=== PATIENT | female | born 1990 | race Two or more races ===

== ENCOUNTER 2020-12-02 08:34 | Emergency (ER) | payer OTHER ==
[~2020-12-02] VITALS: Ht 154.9 cm; Wt 63.5 kg
[2020-12-02] MEDS ORDERED: IV NORMAL SALINE 500 ML BAG IV ONE (08:45)
--- NOTE | 2020-12-02 08:56 | NUR ---
Dr Rosenthal at the bedside for MSE.
[2020-12-02 09:04] LABS: MEAN CORPUSCULAR HEMOGLOBIN 28.4 uug (24.7-32.8); MEAN CORPUSCULAR VOLUME 85.5 fL (75.5-95.3); PLATELET COUNT (AUTO) 343 K/uL (179-408)
[2020-12-02 09:13] LABS: *BILIRUBIN,URIN NEGATIVE (NEGATIVE); *CLARITY,URINE CLEAR (CLEAR); *COLOR,URINE YELLOW (YELLOW); *KETONES,URINE NEGATIVE (NEGATIVE); *UROBILINOGEN,URINE 0.2 E.U./dl (NORMAL); CREATININE 0.7 mg/dL (0.6-1.3); LEUKOCYTE ESTERASE ,URINE NEGATIVE (NEGATIVE); NITRITE, URINE NEGATIVE (NEGATIVE); POTASSIUM 3.4 mmol/L (3.5-5.1); UGLUCOSE NEGATIVE (NEGATIVE)
[2020-12-02 09:17] LABS: *BLOOD, URINE TRACE (NEGATIVE)
[2020-12-02 09:18] LABS: BILIRUBIN,TOTAL 1.1 mg/dL (0.2-1.0)
--- NOTE | 2020-12-02 09:52 | NUR ---
assissted md with vaginal exam, pt tolerated well.
--- NOTE | 2020-12-02 10:19 | NUR ---
IV removed. Catheter intact and site benign. Pressure and 4x4 gauze applied to site. No bleeding noted.
[2020-12-02 10:20] VITALS: BP 117/63
--- NOTE | 2020-12-02 10:22 | NUR ---
Patient discharged to home in stable condition. Written and verbal after care instructions given. Patient verbalizes understanding of instructions. Stressed follow up or return to ER for worsening s/s.
[2020-12-02 13:52] LABS: BACTERIA,URINE MODERATE /HPF (NONE SEEN); RBC,URINE 0-3 /HPF (0-3); SQUAMOUS EPITHELIAL CELL,UR FEW /HPF (NONE SEEN); WBC,URINE 0-3 /HPF (0-3)
[2020-12-02 13:53] LABS: URINE AMORPHOUS URATE MODERATE /HPF
== END 2020-12-02 10:22 | disposition home or self-care (01) ==
LOC: ER 08:34
DX: R30.0 Dysuria (principal); E87.6 Hypokalemia; R31.9 Hematuria, unspecified
CPT/HCPCS: 36415; 85025; 87086; 87210; 87491; 87591; A4663; J7030

== ENCOUNTER 2020-12-10 17:54 | Emergency (ER) | payer OTHER ==
[~2020-12-10] VITALS: Ht 154.9 cm; Wt 63.5 kg
[2020-12-10 18:13] LABS: *BILIRUBIN,URIN NEGATIVE (NEGATIVE); *BLOOD, URINE NEGATIVE (NEGATIVE); *CLARITY,URINE CLEAR (CLEAR); *COLOR,URINE YELLOW (YELLOW); *KETONES,URINE NEGATIVE (NEGATIVE); *URINE HCG, QUAL NEGATIVE (NEGATIVE); *UROBILINOGEN,URINE 0.2 E.U./dl (NORMAL); LEUKOCYTE ESTERASE ,URINE NEGATIVE (NEGATIVE); NITRITE, URINE NEGATIVE (NEGATIVE); UGLUCOSE NEGATIVE (NEGATIVE)
[2020-12-10] MEDS ORDERED: IV NORMAL SALINE 1000 ML BAG IV ONE (19:00)
[2020-12-10] MEDS ORDERED: IOHEXOL 300MG/ML 100 ML INFUS..BTL ONE (19:13)
[2020-12-10] MEDS ORDERED: SWABABLE VALVE TRANSFER SET EA MC ONE (19:13)
[2020-12-10] MEDS ORDERED: IV NORMAL SALINE 250 ML IV ONE (19:13)
[2020-12-10 19:19] LABS: HEMATOCRIT 38.2 % (31.2-41.9); MEAN CORPUSCULAR HEMOGLOBIN 28.3 uug (24.7-32.8); PLATELET COUNT (AUTO) 320 K/uL (179-408)
[2020-12-10 19:21] LABS: CREATININE 0.6 mg/dL (0.6-1.3); POTASSIUM 3.5 mmol/L (3.5-5.1)
[2020-12-10 19:26] LABS: BILIRUBIN,DIRECT 0.1 mg/dL (0.0-0.2); BILIRUBIN,TOTAL 0.7 mg/dL (0.2-1.0); TOTAL PROTEIN, SERUM 8.3 g/dL (6.4-8.2)
--- NOTE | 2020-12-10 19:45 | NUR ---
PATIENT RESTING IN BED WITH NO DISTRESS NOTED.
[2020-12-10] MEDS ORDERED: METR500T PO (20:18)
[2020-12-10] MEDS ORDERED: CIPR-262 PO (20:18)
--- NOTE | 2020-12-10 20:30 | NUR ---
IV removed. Catheter intact and site benign. Pressure and 4x4 gauze applied to site. No bleeding noted.
[2020-12-10 20:36] VITALS: BP 128/67
[2020-12-13 04:06] LABS: *GC NAA Negative (Negative); *TRIC.VAG. NAA Negative (Negative)
== END 2020-12-10 20:37 | disposition home or self-care (01) ==
LOC: ER 17:54
DX: K52.9 Noninfective gastroenteritis and colitis, unspecified (principal); R16.0 Hepatomegaly, not elsewhere classified; R30.0 Dysuria; R93.89 Abnormal findings on diagnostic imaging of other specified body structures; Z87.440 Personal history of urinary (tract) infections
CPT/HCPCS: 36415; 74177; 80048; 80076; 81003; 83690; 84703; 85025; 87086; 87491; 96360; 99285; Q9967; A4663; J7030; J7050

== ENCOUNTER 2020-12-21 21:48 | Emergency (ER) | payer OTHER ==
[~2020-12-21] VITALS: Ht 154.9 cm; Wt 62.6 kg
[~2020-12-21 21:48] MED LIST: CIPR-262 PO; METR500T PO
[2020-12-21 23:10] LABS: HEMATOCRIT 36.5 % (31.2-41.9); MEAN CORPUSCULAR HEMOGLOBIN 28.3 uug (24.7-32.8); MEAN CORPUSCULAR VOLUME 85.2 fL (75.5-95.3); PLATELET COUNT (AUTO) 278 K/uL (179-408)
[2020-12-21 23:12] LABS: CARBON DIOXIDE 25 mmol/L (21-32); CHLORIDE 103 mmol/L (98-107); CREATININE 0.7 mg/dL (0.6-1.3); GLUCOSE 91 mg/dL (74-106); POTASSIUM 3.6 mmol/L (3.5-5.1); UREA NITROGEN, BLOOD 11 mg/dL (7-18)
[2020-12-21 23:18] LABS: ALANINE AMINOTRANSFERASE 20 U/L (14-59); ALKALINE PHOSPHATASE 73 U/L (50-136); ASPARTATE AMINOTRANSFERASE 19 U/L (15-37); BILIRUBIN,DIRECT 0.1 mg/dL (0.0-0.2); BILIRUBIN,TOTAL 0.4 mg/dL (0.2-1.0); LIPASE 248 U/L (73-393); TOTAL PROTEIN, SERUM 7.7 g/dL (6.4-8.2)
[2020-12-21] MEDS ORDERED: IOHEXOL 300MG/ML 100 ML INFUS..BTL ONE (23:44)
[2020-12-21] MEDS ORDERED: SWABABLE VALVE TRANSFER SET EA MC ONE (23:44)
[2020-12-21] MEDS ORDERED: IV NORMAL SALINE 250 ML IV ONE (23:44)
--- NOTE | 2020-12-21 23:48 | NUR ---
A,A,oriented to time,place person complaint right upper to back pain moderate x 2 days worsening today,recent treatment for UTI with Cipro,LMP 11/25/2020 uses condoms denies feeling . # 20 angio LAC dressing dry,intact. EKG to Dr Herbert TINEO, able to gown self,comfort measures x2.
--- NOTE | 2020-12-22 00:12 | NUR ---
Pt back to ER from [place].
--- NOTE | 2020-12-22 00:59 | NUR ---
BP 107/56, P88,temp 98.7 oral resp 20. Pain is now Left flank rates /.Requested medication .
[2020-12-22 01:24] LABS: *BILIRUBIN,URIN NEGATIVE (NEGATIVE); *BLOOD, URINE NEGATIVE (NEGATIVE); *CLARITY,URINE CLEAR (CLEAR); *KETONES,URINE NEGATIVE (NEGATIVE); *UROBILINOGEN,URINE 0.2 E.U./dl (NORMAL); LEUKOCYTE ESTERASE ,URINE NEGATIVE (NEGATIVE); NITRITE, URINE NEGATIVE (NEGATIVE); PH,URINE 6.5 (5.0-8.0); UGLUCOSE NEGATIVE (NEGATIVE)
[2020-12-22 01:29] LABS: *COLOR,URINE STRAW (YELLOW)
[2020-12-22] MEDS ORDERED: KETOROLAC TROMETHAMINE 15 MG INJ IVP ONE (02:00)
[2020-12-22] MEDS ORDERED: KETOROLAC TROMETHAMINE 15 MG INJ ONE (02:17)
[2020-12-22] MEDS ORDERED: NAPR-1164 PO (02:45)
[2020-12-22 02:59] VITALS: BP 122/78
== END 2020-12-22 02:55 | disposition home or self-care (01) ==
LOC: ER 21:49
DX: R10.9 Unspecified abdominal pain (principal); N83.202 Unspecified ovarian cyst, left side; N83.201 Unspecified ovarian cyst, right side; Z87.19 Personal history of other diseases of the digestive system
CPT/HCPCS: 36415; 71045; 74177; 80048; 80076; 81003; 83605; 83690; 84484; 84702; 85025; 87040 ×2; 93005; 96374; 99285; J1885; Q9967; 70030-TC; A4663; J7050